=== PATIENT | male | born 1985 | race African-American/Black ===

== ENCOUNTER 2017-11-28 20:22 | Emergency (ER) ==
[2017-11-28 20:27] VITALS: BP 143/89; TEMP 98; BMI 32.7
--- NOTE | 2017-11-28 21:28 | CT ---
EXAM: CT scan abdomen pelvis without contrast HISTORY: Flank pain COMPARISON: CT scan abdomen pelvis 03/28/2010 FINDINGS: Contiguous axial images obtained through the abdomen pelvis without contrast utilizing 3-m m collimation. Sagittal and coronal reconstructions were imaged and reviewed.. The visualized lung bases are clear. The gallbladder is fluid filled without cholelithiasis.. The liver, pancreas, sple en and adrenal glands have normal unenhanced CT appearance. The abdominal aorta is normal in course and caliber. There is a normal retrocecal appendix. There is a cyst interpolar region right kidney. Left kidney is unremarkable.. Prostate is normal in size. There is no free fluid or infiltrate ch kelvin IMPRESSION: No acute intra-abdominal [id number]
--- NOTE | 2017-11-28 22:07 | ED.PDOC ---
General ED Provider: Dr. ASAD STAPLES-ER Chief Complaint: Abdominal Pain Stated Complaint: my belly has been hurting Time Seen by Physician: 20:25 Mode of Arrival: Walk-In Information Source: Patient Exam Limitations: No limitations Nursing and Triage Documentation Reviewed and Agree: Yes Reviewed sepsis parameters & appropriate labs ordered?: Yes System Inflammatory Response Syndrome: Not Applicable Sepsis Protocol: For patient's 13 years and over: Temp is 96.8 and below OR 101 and greater Pulse >90 BPM Resp >20/minute Acutely Altered Mental Status Are patient's symptoms suggestive of a new infection, such as: -Pneumonia -Skin, Soft Tissue -Endocarditis -UTI -Bone, Joint Infection -Implantable Device -Acute Abdominal Infection -Wound Infection -Meningitis -Blood Stream Catheter Infection -Unknown GI Complaint Exam - Abdominal Pain Complaint/Exam Onset: Sudden Duration: several hours Symptoms Are: Resolved Timing: Intermittent Initial Severity: Mild Current Severity: Mild Location of Pain: RUQ Radiates To: Reports: Back Character: Reports: Dull Alleviating: Reports: None Associated Signs and Symptoms: Reports: Nausea. Denies: Diaphoresis, Fever, Cough, Chest pain, Dizziness, Back pain, Constipation, Blood in stool, Dysuria, Urinary frequency, Decreased urine output, Decreased appetite, Discharge, Vomiting, Diarrhea, Decreased activity Related History: Reports: Similar episode Quality Indicator For Non-Traumatic Chest Pain/Syncope: EKG Performed Review of Systems - Review Of Systems Constitutional: Reports: No symptoms Eyes: Reports: No symptoms Ears, Nose, Mouth, Throat: Reports: No symptoms Respiratory: Reports: No symptoms Cardiac: Reports: No symptoms GI: Reports: Abdominal pain, Nausea : Reports: No symptoms Musculoskeletal: Reports: No symptoms Skin: Reports: No symptoms Neurological: Reports: No symptoms Endocrine: Reports: No symptoms Hematologic/Lymphatic: Reports: No symptoms All Other Systems: Reviewed and Negative Past Medical History - Past Medical History Previously Healthy: Yes Endocrine: Reports: None Cardiovascular: Reports: None Respiratory: Reports: None Hematological: Reports: None Gastrointestinal: Reports: None Genitourinary: Reports: None Neuro/Psych: Reports: None Musculoskeletal: Reports: Unknown Cancer: Reports: None - Surgical History General Surgical History: Reports: Unknown - Family History Family History: Reports: Unknown - Social History Smoking Status: Current every day smoker, Heavy tobacco smoker Hx Substance Use: No Alcohol Screening: Occasionally - Immunizations Tetanus Shot up to Date: Yes Physical Exam - Physical Exam Appearance: Well-appearing, No pain distress, Well-nourished Eyes: TEMO, EOMI, Conjunctiva clear ENT: Ears normal, Nose normal, Oropharynx normal Neck: Supple Respiratory: Airway patent, Breath sounds clear, Breath sounds equal, Respirations nonlabored Cardiovascular: RRR, Pulses normal, No rub, No murmur GI/: Soft Musculoskeletal: Normal strength, ROM intact, No edema, No calf tenderness Skin: Warm, Dry, Normal color Neurological: Sensation intact Psychiatric: Affect appropriate Interpretation - Radiology Interpretation Radiology Interpretation By: Radiologist Radiology Results: Negative Exam Interpreted: CT Scan - EKG Interpretation Time of EKG #1: 22:06 Rate: Normal Rhythm: Sinus Ectopy: None [place]: NL ST Segment: Normal Re-Evaluation - Re-Evaluation Time of Re-Evaluation: 22:07 Status: Improved (sleeping in room) Vital Signs Stable: Yes Pain Level: 0 Appearance: NAD Lungs: Clear Skin: Warm and Dry Neuro: Alert and Oriented X3 CV: RRR Critical Care Note - Critical Care Note Total Time (mins): 0 Course - Course Hematology/Chemistry: 11/28/17 20:47 11/28/17 20:47 Orders, Labs, Meds: Lab Review 11/28/17 11/28/17 11/28/17 20:43 20:43 20:47 WBC 10.07 RBC 5.79 Hgb 13.6 L Hct 39.6 L MCV 68.4 L MCH 23.5 L MCHC 34.3 RDW Coeff of Madan 16.3 H Plt Count 277 Immature Gran % (Auto) 0.6 Neut % (Auto) 55.9 Lymph % (Auto) 28.4 [place] % (Auto) 12.9 H Eos % (Auto) 1.8 Baso % (Auto) 0.4 Immature Gran # (Auto) 0.1 Neut # (Auto) 5.6 Lymph # (Auto) 2.9 [place] # (Auto) 1.3 Eos # (Auto) 0.2 Baso # (Auto) 0.0 ESR Sodium Potassium Chloride Carbon Dioxide Anion Gap BUN Creatinine Estimated GFR (MDRD) BUN/Creatinine Ratio Glucose Calcium Total Bilirubin AST ALT Alkaline Phosphatase Total Creatine Kinase CK-MB (CK-2) CK-MB (CK-2) % Troponin I Total Protein Albumin Globulin Albumin/Globulin Ratio Amylase Lipase Urine Color Yellow Urine Clarity Clear Urine pH 5.5 Ur Specific [place] 1.025 Urine Protein Negative Urine Glucose (UA) Negative Urine Ketones Trace Urine Blood Negative Urine Nitrite Negative Urine Bilirubin Negative Urine Urobilinogen 1.0 Ur Leukocyte Esterase Negative Urine Opiates Screen Negative Ur Oxycodone Screen Negative Urine Methadone Screen Negative Ur Propoxyphene Screen Negative Ur Barbiturates Screen Negative U Tricyclic Antidepress Negative Ur Phencyclidine Scrn Negative Ur Amphetamine Screen Positive U Methamphetamines Scrn Positive U Benzodiazepines Scrn Negative Urine Cocaine Screen Negative U Cannabinoids Screen Negative 11/28/17 11/28/17 11/28/17 20:47 20:47 20:47 WBC RBC Hgb Hct MCV MCH MCHC RDW Coeff of Madan Plt Count Immature Gran % (Auto) Neut % (Auto) Lymph % (Auto) [place] % (Auto) Eos % (Auto) Baso % (Auto) Immature Gran # (Auto) Neut # (Auto) Lymph # (Auto) [place] # (Auto) Eos # (Auto) Baso # (Auto) ESR 7 Sodium 139 Potassium 4.3 Chloride 104 Carbon Dioxide 21 Anion Gap 18.3 BUN 15 Creatinine 1.38 H Estimated GFR (MDRD) 71.00 BUN/Creatinine Ratio 10.86 Glucose 102 H Calcium 9.3 Total Bilirubin < 0.3 AST 28 ALT 29 Alkaline Phosphatase 73 Total Creatine Kinase 489 CK-MB (CK-2) 1.5 CK-MB (CK-2) % 0.50722 Troponin I < 0.0100 Total Protein 7.8 Albumin 3.9 Globulin 3.9 Albumin/Globulin Ratio 1.00 Amylase 71 Lipase 22 Urine Color Urine Clarity Urine pH Ur Specific [place] Urine Protein Urine Glucose (UA) Urine Ketones Urine Blood Urine Nitrite Urine Bilirubin Urine Urobilinogen Ur Leukocyte Esterase Urine Opiates Screen Ur Oxycodone Screen Urine Methadone Screen Ur Propoxyphene Screen Ur Barbiturates Screen U Tricyclic Antidepress Ur Phencyclidine Scrn Ur Amphetamine Screen U Methamphetamines Scrn U Benzodiazepines Scrn Urine Cocaine Screen U Cannabinoids Screen Orders Category Date Time Status EKG-(ED ONLY) Stat CARDIO 11/28/17 20:38 Completed AMYLASE Stat LAB 11/28/17 20:47 Completed CBC W/ AUTO DIFF Stat LAB 11/28/17 20:47 Completed COMPREHENSIVE METABOLIC PANEL Stat LAB 11/28/17 20:47 Completed CREATINE KINASE Stat LAB 11/28/17 20:47 Completed ESR Stat LAB 11/28/17 20:47 Completed LIPASE Stat LAB 11/28/17 20:47 Completed TROPONIN I Stat LAB 11/28/17 20:47 Completed URINALYSIS C & S IF INDICATED Stat LAB 11/28/17 20:43 Completed URINE DRUG SCREEN (RAPID FOR ED) [DRUG SCREEN, URINE, LAB 11/28/17 20:43 Completed RAPID] Stat CT ABDOMEN/PELVIS WO CONTRAST Stat RADS 11/28/17 20:38 Completed Vital Signs: Temp Pulse Resp BP Pulse Ox 11/28/17 20:23 98 F 100 H 16 143/89 H 98 Departure - Departure Time of Disposition: 22:07 Disposition: HOME SELF-CARE Discharge Problem: Abdominal pain Instructions: Acute Abdominal Pain (DC), Acute Abdominal Pain (ED) Condition: Good Pt referred to PMD for follow-up: Yes IPMP verified?: No Additional Instructions: pepcid 40mg bid #30--bentyl 10mg qid prn pain #30--low fat diet--talk to your pcp about gb xrays Allergies/Adverse Reactions: Allergies Penicillins Adverse Reaction (Verified 11/28/17 20:25) Home Medications: Ambulatory Orders 1 [No Reported Medications] 08/15/15 Disposition Discussed With: Patient, Family
== END 2017-11-28 22:10 | disposition home or self-care (01) ==
LOC: ED 20:22
DX: R10.9 Unspecified abdominal pain (principal); F17.210 Nicotine dependence, cigarettes, uncomplicated
CPT/HCPCS: 36415; 80053; 80306; 81001; 82150; 82550; 82553; 83690; 84484; 85025; 85651; 93005; 93010; 99283

== ENCOUNTER 2018-08-18 05:21 | Emergency (ER) | payer OTHER ==
[2018-08-18 05:35] VITALS: BP 155/105; TEMP 98.2; BMI 31.1
--- NOTE | 2018-08-18 06:21 | ED.PDOC ---
General ED Provider: Dr. RASHAD WATTS Chief Complaint: GI Bleed Stated Complaint: Patient states that he has had lower back pain for 3 weeks and has been taking over the counter motrin every 2 hour. Today he noticed Darks stool when he went to the bathroom. Also complains of foul smell of the stool. Time Seen by Physician: 06:16 Mode of Arrival: Walk-In Information Source: Patient Exam Limitations: No limitations Primary Care Provider: JUAN WOOD Nursing and Triage Documentation Reviewed and Agree: Yes Does patient meet sepsis criteria?: No System Inflammatory Response Syndrome: Not Applicable Sepsis Protocol: For patient's 13 years and over: Temp is 96.8 and below OR 101 and greater Pulse >90 BPM Resp >20/minute Acutely Altered Mental Status Are patient's symptoms suggestive of a new infection, such as: -Pneumonia -Skin, Soft Tissue -Endocarditis -UTI -Bone, Joint Infection -Implantable Device -Acute Abdominal Infection -Wound Infection -Meningitis -Blood Stream Catheter Infection -Unknown Review of Systems - Review Of Systems Constitutional: Reports: No symptoms Eyes: Reports: No symptoms Ears, Nose, Mouth, Throat: Reports: No symptoms Respiratory: Reports: No symptoms Cardiac: Reports: No symptoms GI: Reports: Abdominal pain, Diarrhea, Nausea, Poor appetite : Reports: No symptoms Musculoskeletal: Reports: No symptoms Skin: Reports: No symptoms Neurological: Reports: Anxiety Endocrine: Reports: No symptoms Hematologic/Lymphatic: Reports: No symptoms All Other Systems: Reviewed and Negative Past Medical History - Past Medical History Previously Healthy: Yes Endocrine: Reports: None Cardiovascular: Reports: None Respiratory: Reports: None Hematological: Reports: None Gastrointestinal: Reports: PUD, GERD, Pancreatitis Genitourinary: Reports: None Neuro/Psych: Reports: None Musculoskeletal: Reports: Unknown Cancer: Reports: None - Surgical History General Surgical History: Reports: Other (PANCREATITIS AND ULCERS), Unknown - Family History Family History: Reports: Unknown - Social History Smoking Status: Current every day smoker, Light tobacco smoker Hx Substance Use: Yes (ALCOHOL IN THE PAST) Alcohol Screening: Occasionally - Immunizations Tetanus Shot up to Date: Yes Physical Exam - Physical Exam Appearance: Ill-appearing Ill-appearing: Mild Pain Distress: Moderate Eyes: TEMO, EOMI, Conjunctiva clear Neck: Supple Respiratory: Airway patent, Breath sounds clear, Breath sounds equal, Respirations nonlabored Cardiovascular: RRR, Pulses normal, No rub, No murmur GI/: Soft, Nontender Musculoskeletal: Normal strength, ROM intact Skin: Warm, Dry Neurological: Sensation intact, Alert, Oriented Psychiatric: Anxious Interpretation - Radiology Interpretation Radiology Interpretation By: Radiologist Radiology Results: Negative Exam Interpreted: CT Scan - Law Tutor Rate: Tachy Rhythm: Sinus - EKG Interpretation Time of EKG #1: 06:14 Rate: Tachy Rhythm: Sinus Ectopy: None [place]: NL ST Segment: Normal Critical Care Note - Critical Care Note Total Time (mins): 35 Course - Course Hematology/Chemistry: 08/18/18 06:00 08/18/18 06:00 Orders, Labs, Meds: Lab Review 08/18/18 08/18/18 08/18/18 06:00 06:00 06:00 WBC 9.51 RBC 6.08 Hgb 13.5 L Hct 40.4 L MCV 66.4 L MCH 22.2 L MCHC 33.4 RDW Coeff of Madan 16.1 H Plt Count 262 Immature Gran % (Auto) 0.4 Neut % (Auto) 62.1 Lymph % (Auto) 23.3 [place] % (Auto) 12.6 H Eos % (Auto) 1.3 Baso % (Auto) 0.3 Immature Gran # (Auto) 0.0 Neut # (Auto) 5.9 Lymph # (Auto) 2.2 [place] # (Auto) 1.2 Eos # (Auto) 0.1 Baso # (Auto) 0.0 Anisocytosis 2+ Microcytosis 2+ Sodium 139.3 Potassium 3.81 Chloride 101.9 Carbon Dioxide 27.2 Anion Gap 14.01 BUN 15.3 Creatinine 1.28 H Estimated GFR (MDRD) 78.00 BUN/Creatinine Ratio 11.95 Glucose 90.8 Calcium 9.68 Total Bilirubin 0.99 AST 77.5 H ALT 52.8 H Alkaline Phosphatase 75.2 Total Protein 8.80 H Albumin 4.93 Globulin 3.87 Albumin/Globulin Ratio 1.27 Amylase 86.0 Lipase 50.3 Orders Category Date Time Status ED IV/MEDIPORT/POWERPORT .ONCE EMERGENCY 08/18/18 05:59 Active AMYLASE Stat LAB 08/18/18 06:00 Completed CBC W/ AUTO DIFF Stat LAB 08/18/18 06:00 Completed COMPREHENSIVE METABOLIC PANEL Stat LAB 08/18/18 06:00 Completed LIPASE Stat LAB 08/18/18 06:00 Completed RBC MORPHOLOGY Stat LAB 08/18/18 06:00 Completed 0.9 % Sodium Chloride [Saline Flush] MEDS 08/18/18 06:00 Active 1 syr IVF PRN PRN Morphine Sulfate [Morphine 4 mg/ml Syringe] MEDS 08/18/18 07:02 Discontinued 4 mg IVP ONCE STA Ondansetron HCl/Pf [Zofran 4 mg/2 ml] MEDS 08/18/18 07:02 Discontinued 4 mg IVP ONCE STA Pantoprazole Sodium [Protonix IV] MEDS 08/18/18 07:02 Discontinued [address]P ONCE [address]A CT ABD/PEL WO RENAL STONE PROT Stat RADS 08/18/18 06:17 Completed Medications Generic Name Dose Route Start Last Admin Trade Name Freq PRN Reason Stop Dose Admin Sodium Chloride 1 syr 08/18/18 06:00 Saline Flush IVF PRN PRN To flush IV Discontinued Medications Generic Name Dose Route Start Last Admin Trade Name Freq PRN Reason Stop Dose Admin Morphine Sulfate 4 mg 08/18/18 07:02 Morphine 4 Mg/Ml Syringe IVP 08/18/18 07:03 ONCE STA Ondansetron HCl 4 mg 08/18/18 07:02 Zofran 4 Mg/2 Ml IVP 08/18/18 07:03 ONCE STA Pantoprazole Sodium 80 mg 08/18/18 07:02 Protonix Iv IVP 08/18/18 07:03 ONCE STA Vital Signs: Temp Pulse Resp BP Pulse Ox 08/18/18 05:21 98.2 F 112 H 20 155/105 H 97 Departure - Departure Time of Disposition: 07:26 Disposition: HOME SELF-CARE Discharge Problem: Gastrointestinal hemorrhage, Peptic ulcer disease with hemorrhage Instructions: Peptic Ulcer (ED), Gastritis (ED) Condition: Stable Pt referred to PMD for follow-up: Yes IPMP verified?: No Additional Instructions: STOP TAKING IBUPROFEN FOR PAIN TAKE TRAMADOL INSTEAD . FOLLOW UP WITH PCP IN 1-2 DAY TO HAVE FOLLOW UP OF YOUR BLOOD WORK AND REFERRAL TO GI IF NOT BETTER. TAKE PROTONIX TWICE A DAY. Prescriptions: Pantoprazole Sodium [Protonix] 40 mg PO BIDAC #60 tablet. Tramadol HCl [Ultram] 50 mg PO Q6H PRN #20 tablet PRN Reason: Severe Pain Allergies/Adverse Reactions: Allergies Penicillins Adverse Reaction (Verified 08/18/18 05:35) Home Medications: Ambulatory Orders Pantoprazole Sodium [Protonix] 40 mg PO BIDAC #60 tablet. 08/18/18 Tramadol HCl [Ultram] 50 mg PO Q6H PRN #20 tablet 08/18/18 Disposition Discussed With: Patient, Family
[2018-08-18] MEDS ORDERED: PROTONIX IV IVP STA (07:02)
[2018-08-18] MEDS ORDERED: ZOFRAN 4 MG/2 ML IVP STA (07:02)
[2018-08-18] MEDS ORDERED: MORPHINE 4 MG/ML SYRINGE IVP STA (07:02)
--- NOTE | 2018-08-18 07:03 | CT ---
EXAM: CT scan abdomen pelvis without contrast HISTORY: Diffuse abdominal and flank pain COMPARISON: CT scan abdomen pelvis 11/28/2017 FINDINGS: Contiguous axial images were obtained through the abdomen and pelvis without contrast util izing 3-mm collimation. Sagittal and coronal reconstructions were imaged and reviewed.. The visuali zed lung bases are clear. Mild fatty infiltration is noted throughout the liver. The gallbladder is fluid filled without cholelithiasis. The pancreas spleen and adrenal glands have normal unenhanced CT appearance. There is normal retrocecal appendix. There is a simple cyst interpolar region right kidney. The left kidney unremarkable. The abdominal aorta is normal in course and caliber.. There is a small umbilical hernia containing only fat.. There is a normal appendix. The bladder is small volumed limiting evaluation. Bone windows reveals no evidence of lytic or blastic lesions. IMPRESSION: No acute intra-abdominal findings. Mild fatty infiltration is seen within the liver
== END 2018-08-18 08:14 | disposition home or self-care (01) ==
LOC: ED 05:21
DX: K27.4 Chronic or unspecified peptic ulcer, site unspecified, with hemorrhage (principal); F17.210 Nicotine dependence, cigarettes, uncomplicated
CPT/HCPCS: 36415; 74176; 80053; 82150; 83690; 85008; 85025; 86677; 96374; 96375; 99283